=== PATIENT | female | born 2000 | race Caucasian/White ===

== ENCOUNTER 2021-11-04 19:10 | Inpatient (IN) | payer SELFPAY ==
[2021-11-04] VITALS (8 sets, daily range): BP systolic 116–136; BP diastolic 72–89; PULSE 78–90; TEMP 36.4–36.6; O2SAT 96–98; BMI 27.9
[2021-11-04 19:18] LABS: Mucous, Urine 0 SEEN /hpf (<or=2+)
[2021-11-04 19:21] LABS: Color, Urine Straw (Yellow); Glucose, Dipstick Normal (Normal); Ketone-Dipstick Negative (Negative); Leukocyte Esterase-Dipstick 25 /ul (Negative); Nitrite-Dipstick Negative (Negative); Occult Blood-Urine 150 /ul (Negative); Protein-Dipstick Negative (Negative); Specific Gravity, Urine 1.015 (1.002-1.030); Urine Bilirubin Dipstick Negative (Negative); Urine Clarity Clear (Clear); Urine Urobilinogen Normal (Normal)
[2021-11-04 19:35] LABS: Bacteria 1+ /hpf (None Seen); Red Blood Cells-Urine 5-10 SEEN /hpf (0-5); Squamous Epithelial Cells - UA 0-5 SEEN /hpf (5-10); White Blood Cells 0-5 SEEN /hpf (0-5)
[2021-11-04] MEDS: Lactated Ringers 1,000 ML 50 ML IV (20:07)
[2021-11-04] MEDS: Betamethasone/Betamethasone 30 MG/5 ML Vial 12 MG IM (20:14)
--- NOTE | 2021-11-04 20:25 | PCM.HP.OB ---
HPI - General General Date of Admission: 11/04/21 HPI Narrative IRIS WYMAN, is a 21 F who presents with c/o contractions. She received community midwifery care. Maternal Data Information TARIK Calculator Estimated Delivery Date Method Current WG Current Estimate 12/10/21 Conception 34w 6d Other Estimates 11/30/21 LMP (Certain) 36w 2d PFSH PFSH Medical History (Updated 11/04/21 @ 20:[address] Gloria Fabian MD) Irregular menstruation Medical History no medical history Home Medications vit-iron fum-folic ac [ Fa] 1 tab PO DAILY 11/04/21 [History Last Taken Unknown] Allergy/AdvReac Type Severity Reaction Status Date / Time No Known Allergies Allergy Verified 11/04/21 19:59 Family History (Updated 11/04/21 @ 20:[address] Gloria Fabian MD) Mother Thyroid disorder Grandmother Thyroid disorder Surgical History no surgical history Social History Smoking Status: Never smoker History 2 Elective abortions Hx Para 0 Spontaneous abortions 0 Hx # Term Pregnancies Ectopic pregnancies Hx # Pregnancies Multiple births # of living children NST FHR Rate Baby A Baseline: 135 Variability:: Moderate Accelerations:: 15 x 15 Decelerations:: None NST Reactive:: Yes FHR Category:: Category I Uterine Activity:: 0/10 Vital Signs Vital Signs Vital Signs: 11/04/21 18:15 11/04/21 18:18 11/04/21 19:26 Temperature 97.8 F 97.8 F Temperature Source Temporal Temporal Pulse Rate 88 90 84 Blood Pressure 116/73 125/84 H 123/83 H BP Systolic 116 125 123 BP Diastolic 73 84 83 Pulse Ox 97 98 Weight Weight: 69.3 kg Body Mass Index (BMI) 27.9 Physical Exam Const alert, oriented x3 and no apparent distress HEENT normocephalic Head and Scalp: atraumatic Resp normal respiratory effort, normal air movement and clear to auscultation bilaterally Cardio regular rate and regular rhythm GI normal to inspection, nondistended, normoactive bowel sounds, soft to palpation, non-tender and non-distended Inspection: gravid Narrative: 5cm dilation/80/-3 per recent RN exam Labs Labs Labs: No Data to Display Assessment & Plan (1) 34 weeks gestation of : PLAN: 34 weeks 6 days by conception Bedside US AGA, cephalic, fundal left placenta Betamethasone, GBS ppx - reviewed r/b/i each. Refuses GBS ppx at this time. Rapid swab pending. Cat I FHR Expectant management of labor U/A - Ucx pending panel pending
[2021-11-04 20:31] LABS: Absolute Lymphocyte Count 2.58 X10^3/uL (0.83-4.51); Absolute Neutrophil Count 11.3 X10^3/uL (2.0-7.7); Basophil# 0.04 X10^3/uL; Basophil% 0.3 % (0-1); Eosinophil# 0.11 X10^3/uL; Eosinophils% 0.7 % (0-5); Hematocrit 35.9 % (37-47); Hemoglobin 12.1 g/dL (12.0-15.0); Lymphocyte # 2.58 X10^3/ul (0.83-4.51); Lymphocyte % 17.2 % (19-41); Mean Corp Hgb Conc 33.7 g/dL (32-36); Mean Corpuscular Hgb 29.9 pg (27.0-32.0); Mean Corpuscular Volume 88.6 fL (81-99); Mean Platelet Vol. 11.4 fl (6.2-12.0); Monocyte# 0.93 X10^3/uL; Monocyte% 6.2 % (0-10); NRBC Flagged by Analyzer 0 % (0-5); Neutrophil # 11.25 X10^3/uL (2.7-7.7); Neutrophil % 75.1 % (47-70); Platelet Count 255 K/mm3 (150-450); RBC Distribution Width CV 12.9 % (11.6-14.6); RBC Distribution Width SD 41.7 fl (35.1-43.9); Red Blood Count 4.05 M/mm3 (4.2-5.4)
[2021-11-04] MEDS: LACTATED RINGERS 500 ML 999 ML IV (20:36)
[2021-11-04 21:26] LABS: Amphetamine Urine VISTA NEGATIVE (<1000 ng/mL); Barbiturate Urine VISTA NEGATIVE (< 200 ng/mL); Benzodiazepine Urine VISTA NEGATIVE (< 200 ng/mL); Cocaine Urine VISTA NEGATIVE (< 300 ng/mL); Ecstacy Urine VISTA NEGATIVE (< 500 ng/mL); Methadone Urine VISTA NEGATIVE (< 300 ng/mL); PCP Urine VISTA NEGATIVE (< 25 ng/mL); THC Urine VISTA NEGATIVE (< 50 ng/mL); Vista UDS pH Range 7
[2021-11-04 21:46] LABS: Group B Strep DNA By PCR POSITIVE (Negative); Probe Check PASS
[2021-11-04 22:19] LABS: Chlamydia Trachomatis by PCR Negative (Negative); Neisserai gonorrhoeae by PCR Negative (Negative); Probe Check PASS; Sample Adequacy Control PASS; Specimen Processing Control PASS
[2021-11-05] VITALS (29 sets, daily range): BP systolic 101–136; BP diastolic 57–95; PULSE 75–121; RESP 16; TEMP 36.3–36.7; O2SAT 96–99
--- NOTE | 2021-11-05 06:57 | PN_ITS ---
Subjective Subjective No complaints. Objective Data Objective Data Vital Signs: Vital Signs Temp Pulse BP Pulse Ox 97.8 F 90 129/87 H 99 11/05/21 05:49 11/05/21 06:23 11/05/21 05:49 11/05/21 06:23 Weight: 69.3 kg Body Mass Index (BMI) 27.9 Intake & Output: Intake and Output for Last 24 Hours 11/03/21 11/04/21 11/05/21 23:59 23:59 23:59 Intake Total 524.17 / 524.17 1297.5 / 1297.5 Output Total 400 / 400 200 / 200 Balance 124.17 / 124.17 1097.5 / 1097.5 Lab / Micro Data Result Diagrams: 11/04/21 20:04 Labs: Laboratory Results - last 24 hr 11/04/21 19:00: Urine Color Straw, Urine Clarity Clear, Urine pH 8.0, Ur Specific [place] 1.015, Urine Protein Negative, Urine Glucose (UA) Normal, Urine Ketones Negative, Urine Occult Blood 150 H, Urine Nitrite Negative, Urine Bilirubin Negative, Urine Urobilinogen Normal, Ur Leukocyte Esterase 25 H, Urine RBC 5-10 SEEN, Urine WBC 0-5 SEEN, Ur Squamous Epith Cells 0-5 SEEN, Urine Bacteria 1+, Urine Mucus 0 SEEN 11/04/21 19:20: Urine Opiates Screen NEGATIVE, Urine Methadone Screen NEGATIVE, Ur Barbiturates Screen NEGATIVE, Ur Phencyclidine Scrn NEGATIVE, Ur Amphetamines Screen NEGATIVE, MDMA (Ecstasy) Screen NEGATIVE, U Benzodiazepines Scrn NEGATIVE, Urine Cocaine Screen NEGATIVE, U Cannabinoids Screen NEGATIVE, Ur Drug Screen Comment 11/04/21 20:04: WBC 15.0 H, RBC 4.05 L, Hgb 12.1, Hct 35.9 L, MCV 88.6, MCH 29.9, MCHC 33.7, RDW Std Deviation 41.7, RDW Coeff of [place] 12.9, Plt Count 255, MPV 11.4, Immature Gran % (Auto) 0.500, Neut % (Auto) 75.1 H, Lymph % (Auto) 17.2 L, [place] % (Auto) 6.2, Eos % (Auto) 0.7, Baso % (Auto) 0.3, Absolute Neuts (auto) 11.3 H, Absolute Lymphs (auto) 2.58, Nucleated RBC % 0 11/04/21 20:04: Blood Type O POSITIVE, Antibody Screen NEGATIVE 11/04/21 20:20: Chlam trachomat DNA PCR Negative, N.gonorrhoeae DNA (PCR) Negative, Group B Strep DNA POSITIVE H, Specimen Comment Not Reportable Micro: Microbiology 11/04/21 20:20 Nasal Secretion SARS-CoV-2 Antigen (Rapid) - Final Physical Exam Narrative AAO x 3, breathing throught contractions FHR 130, moderate variability, no accelerations, no decelerations, some loss of contact TOCO 4/10 min SVE 9/100/1 per RN exam at 0639h Assessment & Plan Assessment/Plan (1) 35 weeks gestation of : (2) labor: QUALIFIERS: labor trimester: third trimester labor delivery status: without delivery Qualified Code(s): O60.03 - labor without delivery, third trimester PLAN: Post betamethasone Anticipate (3) GBS carrier: PLAN: Recommend antibiotics, pt and again refuse
[2021-11-05 08:30] LABS: Rubella IgG Reactive (Nonreactive); Syphilis Antibodies Non-reactive
[2021-11-05 08:50] LABS: HIV - WCH Non-Reactive (Nonreactive); Hepatitis B Surface Antigen Non-Reactive (Nonreactive); Hepatitis C Antibody Non-Reactive (Nonreactive)
--- NOTE | 2021-11-05 09:34 | EX.PCM.OBRPT ---
Assessment & Plan (1) GBS carrier: (2) 35 weeks gestation of : (3) (spontaneous vaginal delivery): Maternal Data Information TARIK Calculator Estimated Delivery Date Method Current WG Current Estimate 12/10/21 Conception 35w 0d Other Estimates 11/30/21 LMP (Certain) 36w 3d Vaginal Delivery Maternal Presentation Maternal Presentation: Active Labor Operative Information Date of Procedure: 11/05/21 Pre-Operative Diagnosis: 1. 35 weeks gestation 2. labor 3. GBS positive Post-Operative Diagnosis: 1. 35 weeks gestation 2. labor 3. GBS positive Surgery / Procedure Performed: Spontaneous Vaginal Delivery Type of Anesthesia: None Estimated Blood Loss: 150 ml Findings Description of Procedure: Patient was FD and pushed to deliver a vigorous male infant in OA. The was placed on the maternal abdomen and further attended by nursery personnel. The cord was doubly clamped and cut at 4 minutes of life. The placenta delivered spontaneously and appeared intact on inspection. Cord blood was obtained. A first degree perineal laceration was noted with no repair given hemostasis. Fundus was firm. Patient refused pitocin . Sponge counts correct x 2. Presentation: Vertex Amniotic Fluid Description: Clear Placental Delivery Description: Spontaneous Placenta Disposition: [facility] Specimen(s) Removed: placenta Cord Vessel Description: 3 Vessels Cord Entanglement: None Infant A Gender: Male (1 minute): 8 (5 minute): 9 Delayed Cord Clamping: Yes Post Vaginal Delivery Episiotomy Description: None Laceration: Midline and 1st degree Complication Complications: None
[2021-11-06] VITALS (9 sets, daily range): BP systolic 104–116; BP diastolic 71–74; PULSE 82–106; RESP 14–18; TEMP 36.5–36.8; O2SAT 96–99
--- NOTE | 2021-11-06 07:02 | PCM.PN.OB ---
Subjective Subjective Patient without complaints. Minimal vaginal bleeding. Baby to stay until at least late this evening so patient wants to wait to go home until tomorrow. Objective Data Objective Data Vital Signs: Vital Signs Temp Pulse Resp BP Pulse Ox 97.8 F 90 18 104/71 96 11/06/21 03:50 11/06/21 03:50 11/06/21 03:50 11/06/21 03:50 11/06/21 03:50 Oxygen Delivery Method Room Air Weight: 152 lb 12.485 oz Body Mass Index (BMI) 27.9 Intake & Output: Intake and Output for Last 24 Hours 11/04/21 11/05/21 11/06/21 23:59 23:59 23:59 Intake Total 524.17 / 524.17 1297.5 / 1297.5 Output Total 400 / 400 1400 / 1400 Balance 124.17 / 124.17 -102.5 / -102.5 Lab / Micro Data Result Diagrams: 11/04/21 20:04 Labs: Laboratory Results - last 24 hr 11/04/21 20:04: Syphilis Total Ab Non-reactive, Rubella IgG Antibody Reactive 11/04/21 20:20: Hep Bs Antigen Non-Reactive, Hepatitis C Antibody Non-Reactive, HIV 1&2 Antibody Non-Reactive Micro: Microbiology 11/04/21 21:15 Urine, Clean Catch Urine Culture - Preliminary Beta streptococcus 11/04/21 20:20 Nasal Secretion SARS-CoV-2 Antigen (Rapid) - Final Assessment & Plan (1) (spontaneous vaginal delivery): PLAN: Doing well day #1 status post routine spontaneous vaginal delivery. Continuing present care.
[2021-11-07] VITALS (7 sets, daily range): BP systolic 95–115; BP diastolic 57–75; PULSE 73–92; RESP 14–16; TEMP 36–36.4; O2SAT 97–98
--- NOTE | 2021-11-07 08:38 | PCM.PN.OB ---
Subjective Subjective No issues overnight. Feels well. Denies headache, vision changes or painfulness. She is out of bed, voiding without difficulty. Has a good appetite. is going well. Denies heavy lochia. Objective Data Objective Data Vital Signs: Vital Signs Temp Pulse Resp BP Pulse Ox 97.5 F L 92 14 108/75 98 11/07/21 08:00 11/07/21 08:05 11/07/21 08:00 11/07/21 08:05 11/07/21 04:15 Oxygen Delivery Method Room Air Weight: 69.3 kg Body Mass Index (BMI) 27.9 Intake & Output: Intake and Output for Last 24 Hours 11/05/21 11/06/21 11/07/21 23:59 23:59 23:59 Intake Total 1297.5 / 1297.5 Output Total 1400 / 1400 Balance -102.5 / -102.5 Lab / Micro Data Result Diagrams: 11/04/21 20:04 Micro: Microbiology 11/04/21 21:15 Urine, Clean Catch Urine Culture - Final Streptococcus agalactiae (B) Mixed Gram Positive Organisms 11/04/21 20:20 Nasal Secretion SARS-CoV-2 Antigen (Rapid) - Final Physical Exam Const alert, oriented x3 and no apparent distress Resp normal respiratory effort and normal air movement Cardio regular rate, regular rhythm, S1 normal heart sound and S2 normal heart sound Uterus Palpation: uterus fundus firm and other OB fundus nontender Extremity no calf tenderness Neuro oriented x3 Assessment & Plan (1) (spontaneous vaginal delivery): PLAN: PPD#2 Rubella immune, HIV neg, HBsAg neg, HCV Ab neg , GC/CT neg, RPR neg GBS bactiuria however patient asymptomatic and low level - observation only Will d/c home today
--- NOTE | 2021-11-07 08:41 | PCM.DC ---
Discharge Instructions Diet Discharge Diet: No restrictions Activity May resume sexual activity in: 4-6 weeks Dressing / Incision Call your doctor if you observe: Fever of 101 or Higher, Using more than 1 pad per hour, Shortness of breath, Chest pain, Calf discomfort, Uncontrolled pain and - (Persistent or severe headache) Follow Up Care Please Follow Up With: Gloria Fabian MD When: You may follow up with Honey Stevens instead. Test Results: You had GBS in the urine and vagina. This increases the chance for GBS in future . Discharge Plan Admission Admit Date/Time: 11/04/21 19:10 Primary Reason for Your Visit: Vaginal delivery Attending Provider: Gloria Mcdowell Instructions Additional Instructions / Restrictions: You may take Ibuprofen or Tylenol at home for pain. Discharge Orders/Prescriptions Prescriptions: No Action Fa 60 mg iron-1 mg Tablet 1 tab PO DAILY RF: 0 evening primrose oil [Evening [place]] 500 mg Capsule 500 mg PO TID RF: 0 calcium 100 mg Capsule PO RF: 0 iron DAILY RF: 0 Disposition Disposition (needs filled in before D/C Order can be placed): Home, Self Care
--- NOTE | 2021-11-07 08:44 | PCM.DC.SUM ---
Providers Date of Admission: 11/04/21 Reason For Visit: VAG DELIVERY Diagnosis Discharge Diagnosis (1) (spontaneous vaginal delivery): Status: Acute Code(s): O80 - Encounter for full-term uncomplicated delivery Medications at Discharge Home Medications calcium mg PO 11/04/21 evening primrose oil [Evening [place]] 500 mg PO TID 11/04/21 iron DAILY 11/04/21 vit-iron fum-folic ac [ Fa] 1 tab PO DAILY 11/04/21 Hospital Course Operations None Procedures None Summary of Care Provided Hospital Course: 21y admitted with labor. She received betamethasone x 1 and subsequently had an uncomplicated vaginal delivery at 35 weeks gestation. Her course was uncomplicated and she was discharged to home on day #2. She received care with block breaker operator Honey Stevens and plans to follow up with her . Weight / BMI Weight Weight: 69.3 kg Body Mass Index (BMI) 27.9 ABG / Lab / Microbiology Data Result Diagrams: 11/04/21 20:04 Microbiology: Microbiology 11/04/21 21:15 Urine, Clean Catch Urine Culture - Final Streptococcus agalactiae (B) Mixed Gram Positive Organisms 11/04/21 20:20 Nasal Secretion SARS-CoV-2 Antigen (Rapid) - Final D/C Instructions Discharge Diet: No restrictions May resume sexual activity in: 4-6 weeks Call your doctor if you observe: Fever of 101 or Higher, Using more than 1 pad per hour, Shortness of breath, Chest pain, Calf discomfort, Uncontrolled pain and - (Persistent or severe headache) Please Follow Up With: Gloria Fabian MD When: You may follow up with Honey Stevens instead. Meaningful Use Info Meaningful Use Diagnoses (Choose all that apply): None applicable Discharge Plan Admission Admit Date/Time: 11/04/21 19:10 Primary Reason for Your Visit: Vaginal delivery Attending Provider: Gloria Mcdowell Instructions Additional Instructions / Restrictions: You may take Ibuprofen or Tylenol at home for pain. Discharge Orders/Prescriptions Prescriptions: No Action Fa 60 mg iron-1 mg Tablet 1 tab PO DAILY RF: 0 evening primrose oil [Evening [place]] 500 mg Capsule 500 mg PO TID RF: 0 calcium 100 mg Capsule PO RF: 0 iron DAILY RF: 0 Disposition Disposition (needs filled in before D/C Order can be placed): Home, Self Care
== END 2021-11-07 11:35 | disposition home or self-care (01) | DRG 806 ==
LOC: WPOUT 19:15 → WP 19:15
PROVIDERS: Admitting Provider Obstetrics & Gynecology; Referring Provider Obstetrics & Gynecology; Visit Provider Obstetrics & Gynecology
DX: O42.913 Preterm premature rupture of membranes, unspecified as to length of time between rupture and onset of labor, third trimester (principal); Z37.0 Single live birth; O98.82 Other maternal infectious and parasitic diseases complicating childbirth; B95.1 Streptococcus, group B, as the cause of diseases classified elsewhere; Z3A.35 35 weeks gestation of pregnancy; O70.0 First degree perineal laceration during delivery
CPT/HCPCS: 59025; 59050; 76815; 80307; 81001; 85025; 86703; 86762; 86780; 86803; 86850; 86900; 86901; 87077; 87086; 87088; 87186; 87340; 87491; 87591; 87653; 87811; 99218; J7120; G0378; J0702

== ENCOUNTER → 2021-11-08 | Outpatient (CLI) | payer SELFPAY | END | disposition home or self-care (01) | LOC: LAB 21:59 | PROVIDERS: Referring Provider Pediatrics; Visit Provider Pediatrics | DX: Z00.00 Encounter for general adult medical examination without abnormal findings (principal) ==